=== PATIENT | female | born 1990 | race Caucasian/White ===

== ENCOUNTER 2021-01-04 08:27 | Emergency (ER) | payer OTHER, SELFPAY ==
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
[2021-01-04 08:49] VITALS: BP 138/85; PULSE 82; RESP 18; TEMP 36.9; O2SAT 98; BMI 22.3
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
[2021-01-04] MEDS: ibuprofen 800 mg tablet PO (10:12)
[2021-01-04 11:41] VITALS: RESP 18
== END 2021-01-04 11:42 | disposition home or self-care (01) ==
PROVIDERS: Emergency Provider Physician Assistant; PCP Family Medicine
DX: M54.9 Dorsalgia, unspecified (principal); V53.5XXA Driver of pick-up truck or van injured in collision with car, pick-up truck or van in traffic accident, initial encounter
CPT/HCPCS: 70450; 72125; 72128; 72131; 99283